=== PATIENT | female | born 1990 | race Caucasian/White ===

== ENCOUNTER 2023-06-13 22:43 | Emergency (ER) | payer MEDICARE, OTHER, SELFPAY ==
[2023-06-13 22:46] VITALS: BP 124/84; BMI 25.6
[2023-06-13 22:49] VITALS: BP 124/85
[2023-06-13 23:00] VITALS: BP 126/91
--- NOTE | 2023-06-13 23:25 | ED.GENMED ---
History of Present Illness
General
Chief Complaint: Throat Problem
Source: patient and records
Exam Limitations: none
Time Seen by Provider: 06/13/23 23:18
Nursing documentation reviewed up to this point in time: agreed with
Travel History
Have you had any contact with someone who has COVID-19?: No
Do you have any symptoms of coronavirus? Fever > 100 degrees, chills, cough, shortness of breath, sore throat, loss of taste or smell, muscle aches, or headache?: No
History of Present Illness
History of Present Illness:
Patient is a 32-year-old female presents to the emergency department stating she is cannot breathe, her throat is closing she is bright red and itchy. Patient has a history reportedly of asthma and mast cell activation syndrome. Patient gave
herself a shot of epinephrine at home. Patient is able to speak in full sentences but does seem to have stridor and states she cannot breathe or swallow. Patient denies fever or chills. Patient denies any GI or symptoms.
Past History
Past History
ED Past Medical History: Psychiatric, Other (Churge Suzanne, mast cell disorder, autoimmune vasculitis) and Other (Churge-Suzanne)
ED Past Surgical History: Other
Social History
Tobacco: Non-smoker
Alcohol: None
Drug: None
Personal: Other (engaged)
Living: with family
Employment: Other
Family History
Family History: Unable to obtain
Review of Systems
Review of Systems
All Other Systems: ROS reviewed and negative except as documented in HPI and ROS
Constitutional: Denies fever or chills
EENT: Reports sore throat and runny nose
Respiratory: Reports cough and trouble breathing
Cardiac: Reports chest pain
ABD/GI: Reports no symptoms
: Reports no symptoms
Musculoskeletal: Reports joint pain
Skin: Reports itching and rash
Neurological: Reports no symptoms
Hematologic/Lymphatic: Reports no symptoms
Phy Exam
Physical Exam
Physical Exam:
Physical Exam
General: significant distress, alert and appropriate, well nourished, well hydrated
HENT: Normocephalic, supple with no lymphadenopathy, no thyromegaly. Oropharynx is clear
Eyes: Clear sclera, conjuctiva without injection
Heart: Regular rhythm and rate. No S3, S4. No murmur. No NVD, bruit
Lungs: No significant respiratory distress, stridor, lung sounds are coarse without wheezing, clear and equal bilaterally, chest wall symmetrical and no retractions
Abdomen: Soft, nontender, no organomegaly, no CVA tenderness, BS good
Neuro: Alert and oriented x 3, CN II - XII intact, no motor focality, no cerebellar dysfunction
Skin: Erythema of the trunk and extremities
Psychiatric: well kept. interactive and anxious
Extremities: No edema, cyanosis, tenderness, Good and equal peripheral pulses.
Course
Orders/Labs/Results
Orders:
Orders
06/13/23 23:23
EPINEPHrine PF [Adrenalin] 1 mg .ROUTE .STK-MED ONE
06/13/23 23:24
EPINEPHrine PF [Adrenalin] 0.3 mg IM NOW STA
06/13/23 23:25
Diphenhydramine [Benadryl] 50 mg IM NOW STA
Famotidine [Pepcid] 40 mg PO NOW STA
Racepinephrine [Vaponefrin Nebs] 0.5 ml INH R NOW STA
06/13/23 23:31
Famotidine [Pepcid] 20 mg .ROUTE .STK-MED ONE
06/13/23 23:36
Famotidine [Pepcid] 20 mg IV NOW STA
06/13/23 23:39
Diphenhydramine [Benadryl] 50 mg IV NOW STA
06/13/23 23:51
Dexamethasone Sod Phosphate [Decadron] 20 mg IV NOW STA
06/14/23 00:16
Lorazepam [Ativan] 2 mg .ROUTE .STK-MED ONE
06/14/23 00:19
Lorazepam [Ativan] 1 mg IV NOW STA
06/14/23 00:23
EPINEPHrine PF [Adrenalin] 0.3 mg IM NOW STA
Vital Signs
Initial and Last Documented VS:
Initial Vital Signs
Temp Pulse Resp BP Pulse Ox
99.1 F 123 18 124/84 97
06/13/23 22:46 06/13/23 22:46 06/13/23 22:46 06/13/23 22:46 06/13/23 22:46
Last Documented Vital Signs
Temp Pulse Resp BP Pulse Ox
99.1 F 117 20 120/82 98
06/13/23 22:46 06/14/23 00:00 06/14/23 00:00 06/14/23 00:00 06/14/23 00:00
*Radiology
Radiology exam reviewed: other (na)
*Pulse Oximetry
Patient hypoxic: no
*EKG
Interpreted by ED Provider?: NA
*Warehouse Picker Interpretation
Rate: tachycardiac
Interpretation: abnormal
Heart Rate: 115
Rhythm: sinus
*Critical Care Note
Total Time (30-74mins, 75-104mins- exclusive of procedures): 45 minutes
Update Note
Update Note:
Patient repeatedly had stridor and difficulty breathing. Was given multiple doses of epinephrine as well as Vaponefrin and, Pepcid, Benadryl and Decadron IV. Patient seen to be anxious and was given Ativan with some improvement. Patient has
difficult IV access. Patient did have a port in the past but had complications. Patient did take epinephrine at home. Patient seemed to be doing better after the Ativan and multiple rounds of epinephrine and other supporting medications. Checked
on the patient and she was having some itching and I asked her to give the medications a chance to work. That was at 12:30 PM patient 5 minutes later wanted to leave after asking to leave prior to that. I explained to the patient that that was not
in her best interest and that if she was sick she needed to stay and she may need to be admitted. I asked the patient to give me another 15 minutes and I would come and check on her however during that time the patient left.
ED Attending Note
-
Portions of this chart may have been created with voice recognition software.� Occasional wrong word or��sound alike� substitutions may have occurred due to the inherent limitations of voice recognition software.
Discharge Plan
Departure
Patient Disposition: Elopement
Date of Disposition: 06/14/23
Time of Disposition: :19
Patient with high blood pressure during this ER visit?: No
Condition: Fair
Covid-19: Not Applicable
Discharge Problem:
Mast cell activation syndrome
Prescriptions:
No Action
alprazolam 1 MG tablet
1 mg PO Q6H
Patient Comments:
06/13/2023: last filled 05/24/23, 120 tabs for 30 days from [facility]
paroxetine HCl 30 MG tablet
60 mg PO HS
topiramate 100 MG tablet
100 mg PO BID
zolpidem 5 mg Tablet
5 mg PO HS
Patient Comments:
06/13/2023: last filled 06/12/23, 30 tabs for 30 days from [facility]
albuterol sulfate 90 mcg/actuation Hfa Aerosol Inhaler
2 puff INHALATION R Q4HPRN PRN (Reason: sob/wheezing)
prazosin 2 mg Capsule
16 mg PO HS
cetirizine [Zyrtec] 10 mg Tablet
10 mg PO BID
fluticasone propion-salmeterol [Advair HFA] 230-21 mcg/actuation Hfa Aerosol Inhaler
2 puff INHALATION R BID
apixaban 5 mg Tablet
5 mg PO BID
Patient Comments:
03/11/2023, patient states that she gets samples of this medication from her Phlebotomy Supervisor.
Qvar RediHaler 80 mcg/actuation Hfa Aerosol Breath Activated
1 inh INHALATION R BID
folic acid 1 mg Tablet
1 mg PO DAILY
midodrine 10 mg tablet
10 mg PO TID PRN (Reason: Blood pressure)
methotrexate (PF) 25 mg/mL Syringe
25 mg SC WE
Patient Comments:
03/11/2023, patient states that she gets this medication from a specialty pharmacy but does not know the name of it.
albuterol sulfate 2.5 mg /3 mL (0.083 %) solution for nebulization
2.5 mg inhalation R Q4
acetaminophen [Tylenol Extra Strength] 500 mg Tablet
1,000 mg PO DAILYPRN PRN (Reason: fever)
trazodone 100 mg Tablet
100 mg PO HS
aripiprazole 15 mg Tablet
15 mg PO HS
azelastine [Astepro Allergy] 205.5 mcg (0.15 %) [place],Non-Aerosol
1 spray INTRANASAL BID
cholecalciferol (vitamin D3) 1,250 mcg (50,000 unit) Tablet
1,250 mcg PO TUTH
Vitamin C
1 tab PO DAILY
cyanocobalamin (vitamin B-12)
1 tab PO DAILY
Referrals:
NONE,* [Family Provider] -
Interventions
Interventions:
*Risk Screen - Suicide Last Done: 06/13/23 22:46
*General Assessment Last Done: 06/13/23 22:46
*Neglect/Abuse Screening Last Done: 06/13/23 22:46
ED- Fall Risk Assessment Last Done: 06/13/23 23:20
ED-EENT Assessment Last Done: 06/13/23 23:20
ED- Pulmonary Assessment Last Done: 06/13/23 23:20
Discharge Date and Time
Print Language: TAJIK
[2023-06-13] MEDS: ADRENALIN 0.299999999999999989 MG IM (23:27)
[2023-06-13] MEDS: VAPONEFRIN NEBS 0.5 ML INH (23:32)
[2023-06-13] MEDS: PEPCID 20 MG IV (23:36)
[2023-06-13] MEDS: BENADRYL 50 MG IV (23:39)
[2023-06-13 23:48] VITALS: BP 121/78
[2023-06-14] VITALS: BP 120/82
[2023-06-14] MEDS: DECADRON 20 MG IV (00:07)
[2023-06-14] MEDS: ADRENALIN 0.299999999999999989 MG IM (00:16)
[2023-06-14] MEDS: ATIVAN 1 MG IV (00:20)
[2023-06-14 00:30] VITALS: BP 105/64
[2023-06-14 01:00] VITALS: BP 120/68
== END 2023-06-14 01:30 | disposition left against medical advice (07) ==
LOC: EMR 22:43
PROVIDERS: EMERGENCY PHYSICIAN Emergency Medicine
DX: D89.40 Mast cell activation, unspecified (principal)
CPT/HCPCS: 99291; 96374; 96375 ×3; 96372 ×2; 94640

== ENCOUNTER 2023-10-17 14:00 | Inpatient (IN) | payer MEDICARE, OTHER, SELFPAY ==
[2023-10-17] VITALS (11 sets, daily range): BP systolic 106–135; BP diastolic 72–91; BMI 26.2
--- NOTE | 2023-10-17 12:22 | ED.GENMED ---
History of Present Illness
<Gely Tsang DO - Last Filed: 10/17/23 12:39>
General
Chief Complaint: Allergic Reaction
Time Seen by Provider: 10/17/23 12:20
<JESSICA De Guzman Jr. Last Filed: 10/17/23 13:26>
General
Source: patient and ambulance crew
Exam Limitations: none
Nursing documentation reviewed up to this point in time: agreed with
History of Present Illness
History of Present Illness:
33-year-old female with past medical history of mast cell activation syndrome, seizure disorder, asthma anxiety anemia presenting to the emergency department today with concerns of an [place] felt
lightheaded like she was going to pass out noticed stridor wheezing and EMS was called. Given a dose of epi Benadryl IM prior to arrival. Had some improvement.
Past History
<Sameer Lugo Jr., PA-C - Last Filed: 10/17/23 13:26>
Past History
ED Past Medical History: Psychiatric, Other (Churge Suzanne, mast cell disorder, autoimmune vasculitis) and Other (Churge-Suzanne)
ED Past Surgical History: Other
Social History
Tobacco: Non-smoker
Alcohol: None
Drug: None
Personal: Other (engaged)
Living: with family
Employment: Other
Family History
Family History: Unable to obtain
Review of Systems
<JESSICA De Guzman Jr. Last Filed: 10/17/23 13:26>
Review of Systems
Allergies reviewed?: Yes
All Other Systems: ROS reviewed and negative except as documented in HPI and ROS
Phy Exam
<JESSICA De Guzman Jr. Last Filed: 10/17/23 13:26>
Physical Exam
Physical Exam:
GENERAL: Alert
EYE: pupils equal and reactive
NECK: Supple, no significant adenopathy.
ENT: Swelling to the posterior pharynx o/p clr, mmm.
CARDIAC: Regular rate and rhythm .
LUNGS: Audible stridor diffuse wheezing
ABDOMEN: Soft, without focal tenderness, no r/g, no cvat
NEUROLOGICAL: Alert and oriented, no focal neuro deficits
SKIN: Warm and dry, skin intact.
MUSCULOSKELETAL: No edema, well perfused.
PSYCH: Normal and appropriate interaction.
Course
<Gely Tsang, DO - Last Filed: 10/17/23 12:39>
Orders/Labs/Results
Orders:
Orders
10/17/23 12:09
Electrocardiogram (*1) Urgent
Reason for Study: Chest Pain
Other Reason for Exam: n
10/17/23 12:10
EKG- Treatment ONCE
EPINEPHrine PF [Adrenalin] 1 mg .ROUTE .STK-MED ONE
10/17/23 12:12
Albuterol Nebs [Ventolin Nebules] 2.5 mg .ROUTE .STK-MED ONE
Racepinephrine [Vaponefrin Nebs] 0.5 ml .ROUTE .STK-MED ONE
10/17/23 12:15
EPINEPHrine PF [Adrenalin] 1 mg .ROUTE .STK-MED ONE
10/17/23 12:23
Dexamethasone Sod Phosphate [Decadron] 10 mg IV NOW STA
10/17/23 12:24
Diphenhydramine [Benadryl] 25 mg IV NOW STA
10/17/23 12:25
Famotidine [Pepcid] 20 mg IV NOW STA
10/17/23 12:28
Famotidine [Pepcid] 20 mg .ROUTE .STK-MED ONE
10/17/23 12:31
Cardiac Monitoring- Treatment ONCE
0.9% Sodium Chloride 1000 ml [Nss] 1,000 ml IV BOLUS
EPINEPHrine PF [Adrenalin] 0.3 mg IM NOW STA
10/17/23 12:52
Complete Blood Count/With Diff Urgent
Comprehensive Metabolic Panel Urgent
10/17/23 13:00
EPINEPHrine 4 mg/250 mL NSS [Adrenalin] 4 mg in 250 ml IV PER PROTOCOL
Initial dose in mcg/min, then titrate:: 5
Titrate to keep:: SBP > 90 mmHg
Titrate by mcg/min:: 0.5-1 mcg/min
Frequency of titrations (minutes):: 5
Maximum dose in mcg/min:: 10
Begin to taper infusion when:: Remained at goal for 4hrs
Taper by mcg/min:: 0.5-1 mcg/min
Frequency of taper (minutes) if patient maintains goal:: 30
Taper to off?: Yes
If infusion off & no longer maintaining goal:: Contact Provider
10/17/23 13:19
Add On- LAB Routine
Tests Added?: mag
Abnormal Lab Results
10/17/23
12:52
RBC 3.52 L 10^6/uL
(4.20-5.40)
Hgb 9.4 L g/dL
(12.0-16.0)
Hct 29.3 L %
(37.0-47.0)
MCH 26.7 L pg
(27.0-31.0)
MCHC 32.1 L g/dL
(33.0-37.0)
RDW 17.5 H %
(11.5-14.5)
MPV 11.7 H fL
(7.4-10.4)
Chloride 108 H mmol/L
(98-107)
BUN 18 H mg/dl
(7-17)
Creatinine 1.1 H mg/dL
(0.6-1.0)
Glucose 104 H mg/dl
(70-99)
10/17/23 12:52
10/17/23 12:52
Vital Signs
Initial and Last Documented VS:
Initial Vital Signs
Temp Pulse Resp BP Pulse Ox
98.4 F 106 24 123/75 88
10/17/23 12:06 10/17/23 12:06 10/17/23 12:06 10/17/23 12:06 10/17/23 12:06
Last Documented Vital Signs
Temp Pulse Resp BP Pulse Ox
98.4 F 111 20 123/75 100
10/17/23 12:06 10/17/23 12:15 10/17/23 12:15 10/17/23 12:06 10/17/23 12:22
<Sameer Lugo Jr., PA-C - Last Filed: 10/17/23 13:26>
Orders/Labs/Results
Orders:
Orders
10/17/23 12:09
Electrocardiogram (*1) Urgent
Reason for Study: Chest Pain
Other Reason for Exam: n
10/17/23 12:10
EKG- Treatment ONCE
EPINEPHrine PF [Adrenalin] 1 mg .ROUTE .STK-MED ONE
10/17/23 12:12
Albuterol Nebs [Ventolin Nebules] 2.5 mg .ROUTE .STK-MED ONE
Racepinephrine [Vaponefrin Nebs] 0.5 ml .ROUTE .STK-MED ONE
10/17/23 12:15
EPINEPHrine PF [Adrenalin] 1 mg .ROUTE .STK-MED ONE
10/17/23 12:23
Dexamethasone Sod Phosphate [Decadron] 10 mg IV NOW STA
10/17/23 12:24
Diphenhydramine [Benadryl] 25 mg IV NOW STA
10/17/23 12:25
Famotidine [Pepcid] 20 mg IV NOW STA
10/17/23 12:28
Famotidine [Pepcid] 20 mg .ROUTE .STK-MED ONE
10/17/23 12:31
Cardiac Monitoring- Treatment ONCE
0.9% Sodium Chloride 1000 ml [Nss] 1,000 ml IV BOLUS
EPINEPHrine PF [Adrenalin] 0.3 mg IM NOW STA
10/17/23 12:52
Complete Blood Count/With Diff Urgent
Comprehensive Metabolic Panel Urgent
10/17/23 13:00
EPINEPHrine 4 mg/250 mL NSS [Adrenalin] 4 mg in 250 ml IV PER PROTOCOL
Initial dose in mcg/min, then titrate:: 5
Titrate to keep:: SBP > 90 mmHg
Titrate by mcg/min:: 0.5-1 mcg/min
Frequency of titrations (minutes):: 5
Maximum dose in mcg/min:: 10
Begin to taper infusion when:: Remained at goal for 4hrs
Taper by mcg/min:: 0.5-1 mcg/min
Frequency of taper (minutes) if patient maintains goal:: 30
Taper to off?: Yes
If infusion off & no longer maintaining goal:: Contact Provider
10/17/23 13:19
Add On- LAB Routine
Tests Added?: mag
Abnormal Lab Results
10/17/23
12:52
RBC 3.52 L 10^6/uL
(4.20-5.40)
Hgb 9.4 L g/dL
(12.0-16.0)
Hct 29.3 L %
(37.0-47.0)
MCH 26.7 L pg
(27.0-31.0)
MCHC 32.1 L g/dL
(33.0-37.0)
RDW 17.5 H %
(11.5-14.5)
MPV 11.7 H fL
(7.4-10.4)
Chloride 108 H mmol/L
(98-107)
BUN 18 H mg/dl
(7-17)
Creatinine 1.1 H mg/dL
(0.6-1.0)
Glucose 104 H mg/dl
(70-99)
10/17/23 12:52
10/17/23 12:52
Vital Signs
Initial and Last Documented VS:
Initial Vital Signs
Temp Pulse Resp BP Pulse Ox
98.4 F 106 24 123/75 88
10/17/23 12:06 10/17/23 12:06 10/17/23 12:06 10/17/23 12:06 10/17/23 12:06
Last Documented Vital Signs
Temp Pulse Resp BP Pulse Ox
98.4 F 111 20 123/75 100
10/17/23 12:06 10/17/23 12:15 10/17/23 12:15 10/17/23 12:06 10/17/23 12:22
<Sameer Lugo Jr., PA-C - Last Filed: 10/17/23 13:26>
MDM/Problems Addressed
MDM/Problems Addressed:
33-year-old female presenting to the emergency department today with concerns of initially syncopal episode then stridor wheezing airway [place]. Patient received epinephrine and Benadryl prior to arrival.
Here with ongoing symptoms does of a history of mast cell activation syndrome. Was given more epinephrine here still having ongoing stridor and wheezing was given racemic epinephrine and dexamethasone as well as Benadryl. There was some apparent
mild improvement. Patient will be admitted to ICU for further monitoring. Patient does not appear to need intubation at this time
<Sameer Lugo Jr., PA-C - Last Filed: 10/17/23 13:26>
*Critical Care Note
Total Time (30-74mins, 75-104mins- exclusive of procedures): Not Applicable
comment:
Critical care statement: A total of 40 minutes of critical care time was provided for this patient. This includes management of unstable vital signs, evaluation of the patient at bedside, reviewing the patient's pertinent medical records, discussion
with consultants, review of old EKGs and review of pertinent medical records. This time with separate from time utilized to perform the aforementioned documented procedures
ED Attending Note
<Gely Tsang DO - Last Filed: 10/17/23 12:39>
ED Attending Note
Patient seen and examined by attending physician: Yes
I performed the substantive portion of visit, reviewed & personally made and approve the management plan that is documented in note by myself or CHARLES.: Yes
I performed a history and physical exam of patient and discussed management with resident, I reviewed resident's note and agree with documented findings and plan of care.: Yes
ED Attending Note:
Patient seen and evaluated at bedside, 33-year-old female with reported history of mast cell syndrome presenting for concern of anaphylaxis. Patient reports difficulty breathing prior to arrival, received epinephrine and route to hospital. Reports
similar symptoms in the past, requiring intubation. She is unclear what her trigger was. Patient has been seen and evaluated in the hospital on multiple occasions for similar symptoms, most recently in June. Vital signs on arrival significant
for tachypnea and tachycardia.
On exam, patient appears anxious. She is speaking in full sentences. Uvula is midline, handling secretions, however does appear to have some stridorous respirations. No wheezing appreciated, upper airway transmitted sounds. No systemic rash.
Concern for allergic reaction. Difficult IV access, ultrasound-guided IV placed by physician offset press assistant. Epinephrine administered as well as steroids, Benadryl. Patient maintained normal saturations, able to speak in full sentences. Holding off
any advanced airway at this time. Will maintain on supplemental O2. However, patient still feels symptomatic, start epinephrine drip and plan for ICU admission
<Sameer Lugo Jr., PA-C - Last Filed: 10/17/23 13:26>
-
Portions of this chart may have been created with voice recognition software.� Occasional wrong word or��sound alike� substitutions may have occurred due to the inherent limitations of voice recognition software.
Discharge Plan
Departure
Patient Disposition: Admit
Date of Disposition: 10/17/23
Time of Disposition: 13:09
Admit to: ICU
Admit to doctor: Daniela
Presentation/result/management discussed w/ accepting MD/DO: Hospitalist
Patient with high blood pressure during this ER visit?: No
Condition: Fair
Covid-19: Not Applicable
Discharge Problem:
Stridor, Wheeze
Prescriptions:
No Action
alprazolam 1 MG tablet
1 mg PO Q6H
Patient Comments:
06/13/2023: last filled 05/24/23, 120 tabs for 30 days from [id number]
paroxetine HCl 30 MG tablet
60 mg PO HS
topiramate 100 MG tablet
100 mg PO BID
zolpidem 5 mg Tablet
5 mg PO HS
Patient Comments:
06/13/2023: last filled 06/12/23, 30 tabs for 30 days from [id number]
albuterol sulfate 90 mcg/actuation Hfa Aerosol Inhaler
2 puff INHALATION R Q4HPRN PRN (Reason: sob/wheezing)
prazosin 2 mg Capsule
16 mg PO HS
cetirizine [Zyrtec] 10 mg Tablet
10 mg PO BID
fluticasone propion-salmeterol [Advair HFA] 230-21 mcg/actuation Hfa Aerosol Inhaler
2 puff INHALATION R BID
apixaban 5 mg Tablet
5 mg PO BID
Patient Comments:
03/11/2023, patient states that she gets samples of this medication from her Manager Agriculture.
Qvar RediHaler 80 mcg/actuation Hfa Aerosol Breath Activated
1 inh INHALATION R BID
folic acid 1 mg Tablet
1 mg PO DAILY
midodrine 10 mg tablet
10 mg PO TID PRN (Reason: Blood pressure)
methotrexate (PF) 25 mg/mL Syringe
25 mg SC WE
Patient Comments:
03/11/2023, patient states that she gets this medication from a specialty pharmacy but does not know the name of it.
albuterol sulfate 2.5 mg /3 mL (0.083 %) solution for nebulization
2.5 mg inhalation R Q4
acetaminophen [Tylenol Extra Strength] 500 mg Tablet
1,000 mg PO DAILYPRN PRN (Reason: fever)
trazodone 100 mg Tablet
100 mg PO HS
aripiprazole 15 mg Tablet
15 mg PO HS
azelastine [Astepro Allergy] 205.5 mcg (0.15 %) [place],Non-Aerosol
1 spray INTRANASAL BID
cholecalciferol (vitamin D3) 1,250 mcg (50,000 unit) Tablet
1,250 mcg PO TUTH
Vitamin C
1 tab PO DAILY
cyanocobalamin (vitamin B-12)
1 tab PO DAILY
Interventions
Interventions:
*Risk Screen - Suicide Last Done: 10/17/23 12:23
*General Assessment Last Done: 10/17/23 12:06
*Neglect/Abuse Screening Last Done: 10/17/23 12:06
ED- Fall Risk Assessment Last Done: 10/17/23 12:22
ED- Cardiac Assessment Last Done: 10/17/23 12:22
ED- Pulmonary Assessment Last Done: 10/17/23 12:22
ED-Skin Assessment Last Done: 10/17/23 12:22
Discharge Date and Time
Print Language: BOLIVIAN
[2023-10-17] MEDS: BENADRYL 25 MG IV (12:30)
[2023-10-17] MEDS: PEPCID 20 MG IV (12:32)
[2023-10-17] MEDS: DECADRON 10 MG IV (12:33)
[2023-10-17] MEDS: ADRENALIN 0.3 MG IM (12:36)
[2023-10-17] MEDS: NSS 1000 IV (12:37)
[2023-10-17 13:00] LABS: % Basophils 0.6 % (0-2); % Eosinophils 1.7 % (0-6); % Immature Granulocytes 0.5 % (0-0.5); % Lymphocytes 42.4 % (20.5-51.1); % Monocytes 9.1 % (1.7-9.3); % Neutrophils 45.7 % (42.2-75.2); Absolute Eosinophils 0.1 10^3/uL (0-0.7); Absolute Lymphocytes 2.7 10^3/uL (1.2-3.4); Absolute Monocytes 0.6 10^3/uL (0.1-0.6); Absolute Neutrophils 2.9 10^3/uL (1.4-6.5); Hematocrit 29.3 % (37.0-47.0); Hemoglobin 9.4 g/dL (12.0-16.0); Mean Corp Hgb Conc. 32.1 g/dL (33.0-37.0); Mean Corpuscular Hgb 26.7 pg (27.0-31.0); Mean Corpuscular Volume 83.2 fL (81.0-99.0); Mean Platelet Volume 11.7 fL (7.4-10.4); Nucleated Red Blood Cells % 0 %; Platelet Count 225 10^3/uL (130-400); Red Blood Cell Count 3.52 10^6/uL (4.20-5.40); Red Cell Dist. Width 17.5 % (11.5-14.5); White Blood Cell Count 6.3 10^3/uL (4.8-10.8)
[2023-10-17 13:13] LABS: ALT (SGPT) 28 U/L (0-35); AST (SGOT) 36 U/L (14-36); Albumin 4.3 g/dl (3.5-5.0); Alkaline Phosphatase 67 U/L (38-126); Blood Urea Nitrogen 18 mg/dl (7-17); Calcium 9.1 mg/dl (8.4-10.2); Carbon Dioxide 22 mmol/L (22-30); Chloride 108 mmol/L (98-107); Glucose 104 mg/dl (70-99); Potassium 3.6 mmol/L (3.5-5.1); Sodium 140 mmol/L (135-145); Total Bilirubin 0.3 mg/dl (0.2-1.3); Total Protein 6.7 g/dl (6.3-8.2); eGFR > 60.00
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
[2023-10-17] MEDS: ADRENALIN 250 IV (13:23)
[2023-10-17 13:48] LABS: Magnesium 1.7 mg/dl (1.6-2.3)
[2023-10-17] MEDS: ATIVAN 2 MG IV (14:33)
[2023-10-17] MEDS: D5/0.45%NSS with KCL 10 MEQ 1000 IV (15:14)
--- NOTE | 2023-10-17 15:30 | PTCARENOTE ---
Received pt from ER into ICU rm [id number] @ approx 1500. Pt. AAOx3, anxious. Hoarse voice quality. Hand tremors present. SpO2 98% on RA. 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 No desaturation/tachypnea noted. Dr. dangelo to
bedside, aware of forced breathing pattern @ x's. SR on monitor. Epi gtt infusing via #20 R upper arm to keep SBP >90- see flow sheet. +BS and soft/nt. NPO status maintained; tolerating ice chips per diet orders. Stress inc @ x's. Bedrest
maintained on epi gtt. Instructed on how to report care concerns and call chris victor in reach.
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
[2023-10-17 15:42] LABS: APTT 24.3 Sec (23.4-35.0); INR 1.15; PT 14.6 Sec (11.4-14.6)
[2023-10-17] MEDS: BENADRYL 50 MG IV (16:25)
--- NOTE | 2023-10-17 18:34 | PTCARENOTE ---
Epi gtt tapered to off per orders- see flow sheet. Pt. assisted OOB to chair, tolerating chair position. Call perez remains w in reach.
--- NOTE | 2023-10-17 19:16 | PTCARENOTE ---
Patient wishes to leave AMA. 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 Patient educated about continuing treatment, educated about worsening signs of clinical deterioration, questions answered. AMA papers signed, patient was escorted off the unit by
security.
--- NOTE | 2023-10-17 19:37 | W.PN.UPDATE ---
Update Note
Progress Note Update
Patient stated she would like to leave AMA (against medical advice). Risks addressed and all questions answered, she signed AMA paperwork concern for worsening clinical deterioration if she does not stay and verbalized understanding. Patient will
call to arrange a ride home. RN, charge nurse, nursing power and recovery supervisor, and Dr. Barth graduate research assistant made aware.
--- NOTE | 2023-10-20 15:50 | W.DCSUMMARY ---
Discharge Summary
Discharge Data
Date of Admission: 10/17/23
Date of Discharge: 10/17/23
-
Pending Results: No
Hospital Course
Primary diagnoses:
Acute anaphylaxis
Mast cell activation syndrome
Secondary diagnoses:
h/o right atrial thrombus
Churg-Suzanne syndrome
Asthma
Posttraumatic stress disorder
Anxiety
Insomnia
Chronic hypertension
Common Variable Immunodeficiency
Migraine Headaches
Seizure previously requiring intubation
Left Atrial Mass, undergoing workup at [facility]
Mononeuritis Multiplex
Consults:
Critical care
Imaging:
CXR: Low lung volumes. No suspected acute cardiopulmonary process.
Hospital course: 33-year-old female who presented with anaphylaxis as outlined in the H&P done on admission. The patient was placed on an epinephrine drip in the ER. She was admitted to the ICU. Shortly thereafter the patient left AGAINST MEDICAL
ADVICE.
Discharge Plan
-
Patient Disposition: Against Medical Advice
Condition: Fair
Prescriptions:
No Action
alprazolam 1 MG tablet
1 mg PO Q6H
Patient Comments:
10/17/23: Per PDMP, last filled 10/06/23 #120 for 30 days
paroxetine HCl 30 MG tablet
60 mg PO HS
topiramate 100 MG tablet
100 mg PO BID
zolpidem 5 mg Tablet
5 mg PO HSPRN PRN (Reason: sleep)
Patient Comments:
10/17/23: Last filled 10/03/23 #30 for 30 days
albuterol sulfate 90 mcg/actuation Hfa Aerosol Inhaler
2 puff INHALATION R Q4HPRN PRN (Reason: sob/wheezing)
prazosin 2 mg Capsule
12 mg PO HS
cetirizine [Zyrtec] 10 mg Tablet
10 mg PO BID
fluticasone propion-salmeterol [Advair HFA] 230-21 mcg/actuation Hfa Aerosol Inhaler
2 puff INHALATION R BID
apixaban 5 mg Tablet
5 mg PO BID
Patient Comments:
03/11/2023, patient states that she gets samples of this medication from her Donation Worker.
folic acid 1 mg Tablet
1 mg PO DAILY
midodrine 10 mg tablet
10 mg PO TIDPRN PRN (Reason: Blood pressure)
albuterol sulfate 2.5 mg /3 mL (0.083 %) solution for nebulization
2.5 mg inhalation R Q4HPRN PRN (Reason: sob)
trazodone 100 mg Tablet
100 mg PO HS
fexofenadine [Qing] 60 mg Tablet
60 mg PO BID
sumatriptan succinate [Imitrex] 100 mg Tablet
0 mg PO .COMPLEX
Rx Instructions:
take 1 tab at onset of headache; if no relief, may repeat 1 tab after at least 2 hrs; max = 2 tabs/24 hrs
cyanocobalamin (vitamin B-12) 1,000 mcg Tablet
1,000 mcg PO DAILY
oxycodone-acetaminophen [Percocet] 5-325 mg Tablet
2 tab PO Q8HPRN PRN (Reason: severe pain)
famotidine [Pepcid] 20 mg Tablet
20 mg PO BID
Gammagard 2.5 gram Recon Soln
0 g IV TU
fluticasone propionate [Flonase] 50 mcg/actuation [place],Suspension
1 spray INTRANASAL BID
naratriptan 2.5 mg Tablet
0 mg PO .COMPLEX
Rx Instructions:
take 1 tab at onset of headache; if no relief may repeat 1 tab after at least 4 hrs; max = 2 tabs/24 hrs
atovaquone [Mepron] 750 mg/5 mL Suspension
1,500 mg PO BID
Patient Comments:
10/17/23 patient suppose to be on this but does not take this because of the taste
pregabalin [Lyrica] 300 mg Capsule
300 mg PO BID
Nucala 100 mg Recon Soln
300 mg SC Q4W
Medrol 2 mg Tablet
16 mg PO BID
Uribel
1 tab PO TID
Discharge Date and Time
Discharge Date/Time: 10/17/23 19:20
Print Language: IRAQI
== END 2023-10-17 19:20 | disposition left against medical advice (07) | DRG 202 ==
LOC: ICU 14:00
PROVIDERS: Physician Assistant; ADMITTING PHYSICIAN Internal Medicine; CONSULT PHYSICIAN Internal Medicine Critical Care Medicine; EMERGENCY PHYSICIAN Student in an Organized Health Care Education/Training Program
DX: J98.01 Acute bronchospasm (principal); D83.9 Common variable immunodeficiency, unspecified; M30.1 Polyarteritis with lung involvement [Churg-Strauss]; N17.9 Acute kidney failure, unspecified; Z53.29 Procedure and treatment not carried out because of patient's decision for other reasons; R06.03 Acute respiratory distress; D89.40 Mast cell activation, unspecified; D84.1 Defects in the complement system; I95.89 Other hypotension; I51.3 Intracardiac thrombosis, not elsewhere classified; G58.7 Mononeuritis multiplex; G40.909 Epilepsy, unspecified, not intractable, without status epilepticus; D64.9 Anemia, unspecified; F43.10 Post-traumatic stress disorder, unspecified; F41.9 Anxiety disorder, unspecified; G43.909 Migraine, unspecified, not intractable, without status migrainosus; G47.00 Insomnia, unspecified; J32.9 Chronic sinusitis, unspecified; Z79.51 Long term (current) use of inhaled steroids; Z79.01 Long term (current) use of anticoagulants; Z88.6 Allergy status to analgesic agent; Z88.1 Allergy status to other antibiotic agents; Z88.2 Allergy status to sulfonamides; Z88.8 Allergy status to other drugs, medicaments and biological substances; Z91.013 Allergy to seafood; Z79.899 Other long term (current) drug therapy; Z60.8 Other problems related to social environment
CPT/HCPCS: 71045; 80053; 83735; 85025; 85610; 85730; 93005; 96361; 96372; 96374; 96375; 99291; J3480

== ENCOUNTER 2023-10-18 13:05 | Emergency (ER) | payer MEDICARE, OTHER, SELFPAY ==
[2023-10-18 13:07] VITALS: BP 119/73; BMI 26.9
[2023-10-18 13:11] VITALS: BP 119/73
--- NOTE | 2023-10-18 13:22 | PHANOTE ---
med rec note- Patent returning back to [facility], patient does have a list of meds on her phone which looks like [facility]. patient shake and unsteady with her phone can make out the portal 100%. Patient stated that some of the medication are
not important and that we probably do not caring them here, I did explain my job to her weather we do or do not caring them, did convenience her to finish the list on the portal. Added them to the list. patient request that we give her IV Benadryl
q4h. I did inform her that is up to her md taking care of her and I can pass the message along.
[2023-10-18] MEDS: ATIVAN 2 MG IV (13:28)
[2023-10-18] MEDS: DECADRON 10 MG IV (13:29)
[2023-10-18] MEDS: BENADRYL 50 MG IV (13:29)
--- NOTE | 2023-10-18 13:32 | ED.GENMED ---
History of Present Illness
General
Chief Complaint: Allergic Reaction
Time Seen by Provider: 10/18/23 13:13
History of Present Illness
History of Present Illness:
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 Prior to arrival she was at a court house and someone
opened crackers with peanut butter. She subsequently started to have difficulty breathing, prompting her to call medics. Medics administered 3 rounds of epinephrine en route. Patient reports minimal improvement. However, of note, patient has
been seen and evaluated for this issue on several occasions. Most recently yesterday, patient presented for concern of anaphylaxis, was placed on epinephrine drip and admitted to the ICU. Patient left AMA yesterday. Patient feels that her throat
is swollen. She also reports some tightness with her breathing. She reports history of intubations in the past. Denies any additional medical complaints
Past History
Past History
ED Past Medical History: Psychiatric, Other (Churge Suzanne, mast cell disorder, autoimmune vasculitis) and Other (Churge-Suzanne)
ED Past Surgical History: Other
Social History
Tobacco: Non-smoker
Alcohol: None
Drug: None
Personal: Other (engaged)
Living: with family
Employment: Other
Family History
Family History: Unable to obtain
Phy Exam
Physical Exam
Physical Exam:
General:no clinical signs of dehydration, nontoxic and in no acute distress
HEENT: protecting airway, speaking in full sentences. Forced stridor when coughing. No stridor at rest. No oropharyngeal swelling. Handling secretions
Neck: appears supple
CV: Tachycardic, regular rhythm, no evidence of cyanosis
Resp: No accessory muscle use, no increased work of breathing, lungs clear to auscultation bilaterally
Abd: Soft and non-distended, no tenderness to palpation, normal bowel sounds
Extremities: No deformities, no swelling, no erythema, pulses and sensation intact
Neuro: alert, no focal neurologic deficit
: deferred
Rectal: deferred
Psych: Normal affect
Skin: Intact
Course
Orders/Labs/Results
Orders:
Orders
10/18/23 13:21
Dexamethasone Sod Phosphate [Decadron] 10 mg IV NOW STA
Diphenhydramine [Benadryl] 50 mg IV NOW STA
Lorazepam [Ativan] 2 mg IV NOW STA
10/18/23 13:28
CBC/With Diff [Complete Blood Count/With Diff] Urgent
Comprehensive Metabolic Panel Urgent
10/18/23 14:23
Albuterol Nebs [Ventolin Nebules] 2.5 mg INH R NOW STA
Abnormal Lab Results
10/18/23
13:28
RBC 3.22 L 10^6/uL
(4.20-5.40)
Hgb 8.9 L g/dL
(12.0-16.0)
Hct 26.8 L %
(37.0-47.0)
RDW 17.5 H %
(11.5-14.5)
MPV 11.5 H fL
(7.4-10.4)
Absolute Monos (auto) 0.7 H 10^3/uL
(0.1-0.6)
Potassium 2.8 L mmol/L
(3.5-5.1)
Chloride 108 H mmol/L
(98-107)
Carbon Dioxide 21 L mmol/L
(22-30)
Glucose 156 H mg/dl
(70-99)
10/18/23 13:28
10/18/23 13:28
Vital Signs
Initial and Last Documented VS:
Initial Vital Signs
Temp Pulse BP Pulse Ox
98.2 F 124 119/73 100
10/18/23 13:07 10/18/23 13:07 10/18/23 13:07 10/18/23 13:07
Last Documented Vital Signs
Temp Pulse Resp BP Pulse Ox
98.2 F 82 16 107/96 99
10/18/23 13:07 10/18/23 14:45 10/18/23 14:45 10/18/23 14:24 10/18/23 14:45
MDM/Problems Addressed
MDM/Problems Addressed:
33-year-old female with history of mast cell activation syndrome presenting for concern of anaphylaxis after exposure to peanut butter. Vital signs on arrival significant for tachycardia.
On exam, patient is in no acute respiratory distress, received 3 doses of IM epinephrine en route. Patient is reporting that she is not feeling better, however on my assessment she is speaking in full sentences. She has no stridor at rest. She
does have some for stridor with coughing. There is no wheezing on auscultation to the lungs. There is no systemic rash. There is no oropharyngeal swelling. Patient is handling secretions without difficulty. Do not feel that she requires any
intubation at this time or epinephrine drip. Feel that medications have appropriately worked. She is requesting steroids, Benadryl, Ativan. Will administer. However, given patient's long history of allergic reactions, risk of decompensation and
rebound reaction. Plan for admission for continued monitoring.
15:00-patient now claiming she wants to leave AGAINST MEDICAL ADVICE. Risks of leaving explained, including respiratory arrest and . Patient verbalized understanding. Patient ripped out her IV and left without paperwork
*Critical Care Note
Total Time (30-74mins, 75-104mins- exclusive of procedures): Not Applicable
ED Attending Note
-
Portions of this chart may have been created with voice recognition software.� Occasional wrong word or��sound alike� substitutions may have occurred due to the inherent limitations of voice recognition software.
Discharge Plan
Departure
Patient Disposition: Admit
Date of Disposition: 10/18/23
Time of Disposition: 14:05
Presentation/result/management discussed w/ accepting MD/DO: Hospitalist
Patient with high blood pressure during this ER visit?: No
Condition: Fair
Discharge Problem:
Mast cell activation syndrome, Acute anaphylaxis
Prescriptions:
No Action
alprazolam 1 MG tablet
1 mg PO Q6H
Patient Comments:
10/17/23: Per PDMP, last filled 10/06/23 #120 for 30 days
paroxetine HCl 30 MG tablet
60 mg PO HS
topiramate 100 MG tablet
100 mg PO BID
zolpidem 5 mg Tablet
5 mg PO HSPRN PRN (Reason: sleep)
Patient Comments:
10/17/23: Last filled 10/03/23 #30 for 30 days
albuterol sulfate 90 mcg/actuation Hfa Aerosol Inhaler
2 puff INHALATION R Q4HPRN PRN (Reason: sob/wheezing)
prazosin 2 mg Capsule
12 mg PO HS
cetirizine [Zyrtec] 10 mg Tablet
10 mg PO BID
fluticasone propion-salmeterol [Advair HFA] 230-21 mcg/actuation Hfa Aerosol Inhaler
2 puff INHALATION R BID
apixaban 5 mg Tablet
5 mg PO BID
Patient Comments:
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
folic acid 1 mg Tablet
1 mg PO DAILY
midodrine 10 mg tablet
10 mg PO TIDPRN PRN (Reason: Blood pressure)
albuterol sulfate 2.5 mg /3 mL (0.083 %) solution for nebulization
2.5 mg inhalation R Q4HPRN PRN (Reason: sob)
trazodone 100 mg Tablet
100 mg PO HS
fexofenadine [Qing] 60 mg Tablet
60 mg PO BID
sumatriptan succinate [Imitrex] 100 mg Tablet
0 mg PO .COMPLEX
Rx Instructions:
take 1 tab at onset of headache; if no relief, may repeat 1 tab after at least 2 hrs; max = 2 tabs/24 hrs
cyanocobalamin (vitamin B-12) 1,000 mcg Tablet
1,000 mcg PO DAILY
oxycodone-acetaminophen [Percocet] 5-325 mg Tablet
2 tab PO Q8HPRN PRN (Reason: severe pain)
famotidine [Pepcid] 20 mg Tablet
20 mg PO BID
Gammagard 2.5 gram Recon Soln
0 g IV TU
fluticasone propionate [Flonase] 50 mcg/actuation [place],Suspension
1 spray INTRANASAL BID
naratriptan 2.5 mg Tablet
0 mg PO .COMPLEX
Rx Instructions:
take 1 tab at onset of headache; if no relief may repeat 1 tab after at least 4 hrs; max = 2 tabs/24 hrs
atovaquone [Mepron] 750 mg/5 mL Suspension
1,500 mg PO BID
Patient Comments:
10/17/23 patient suppose to be on this but does not take this because of the taste
pregabalin [Lyrica] 300 mg Capsule
300 mg PO BID
Nucala 100 mg Recon Soln
300 mg SC Q4W
Medrol 2 mg Tablet
16 mg PO BID
Uribel
1 tab PO TID
Interventions
Interventions:
*Risk Screen - Suicide Last Done: 10/18/23 13:07
*General Assessment Last Done: 10/18/23 13:07
*Neglect/Abuse Screening Last Done: 10/18/23 13:07
ED- Fall Risk Assessment Last Done: 10/18/23 13:15
*ED COVID-19 Vaccine History Last Done: 10/18/23 13:07
ED- Cardiac Assessment Last Done: 10/18/23 13:15
ED- Pulmonary Assessment Last Done: 10/18/23 13:15
ED-Skin Assessment Last Done: 10/18/23 13:15
Discharge Date and Time
Print Language: INDONESIAN
[2023-10-18 13:44] LABS: % Basophils 0.3 % (0-2); % Eosinophils 1.9 % (0-6); % Immature Granulocytes 0.4 % (0-0.5); % Lymphocytes 40.6 % (20.5-51.1); % Monocytes 8.9 % (1.7-9.3); % Neutrophils 47.9 % (42.2-75.2); Absolute Eosinophils 0.1 10^3/uL (0-0.7); Absolute Lymphocytes 3.1 10^3/uL (1.2-3.4); Absolute Monocytes 0.7 10^3/uL (0.1-0.6); Absolute Neutrophils 3.6 10^3/uL (1.4-6.5); Hematocrit 26.8 % (37.0-47.0); Hemoglobin 8.9 g/dL (12.0-16.0); Mean Corp Hgb Conc. 33.2 g/dL (33.0-37.0); Mean Corpuscular Hgb 27.6 pg (27.0-31.0); Mean Corpuscular Volume 83.2 fL (81.0-99.0); Mean Platelet Volume 11.5 fL (7.4-10.4); Nucleated Red Blood Cells % 0 %; Platelet Count 215 10^3/uL (130-400); Red Blood Cell Count 3.22 10^6/uL (4.20-5.40); Red Cell Dist. Width 17.5 % (11.5-14.5); White Blood Cell Count 7.5 10^3/uL (4.8-10.8)
[2023-10-18 13:57] LABS: ALT (SGPT) 27 U/L (0-35); AST (SGOT) 32 U/L (14-36); Albumin 4.2 g/dl (3.5-5.0); Alkaline Phosphatase 60 U/L (38-126); Blood Urea Nitrogen 15 mg/dl (7-17); Calcium 9.5 mg/dl (8.4-10.2); Carbon Dioxide 21 mmol/L (22-30); Chloride 108 mmol/L (98-107); Estimated Creatinine Clearance 79 ml/min; Glucose 156 mg/dl (70-99); Potassium 2.8 mmol/L (3.5-5.1); Sodium 140 mmol/L (135-145); Total Bilirubin 0.3 mg/dl (0.2-1.3); Total Protein 6.3 g/dl (6.3-8.2); eGFR > 60.00
[2023-10-18 14:24] VITALS: BP 107/96
--- NOTE | 2023-10-18 15:11 | EDRN ---
pt admitted to the hospital for overnight observation by ED attending Dr. Tsang. admitting hospitalist Dr. Michael Reed who was refusing to admit the patient. Dr. Reed stated to myself and Dr. Tsang that 'the patient is fine, she has no
stridor, no wheezing, no shortness of breath and she does not need to be admitted to the hospital.' Dr. Tsang informed Dr. Reed that the patient received 3 rounds of epinephrine prior to coming to the hospital and can rebound with anaphylaxis.
Dr. Reed proceeded to tell Dr. Tsang that the patient does not need to be admitted and that Dr. Tsang is 'pushing the discharge on another physician upstairs.' Dr. Reed went back into the patient's room and told her several times that it
is her decision to stay in the hospital or go home. Dr. Tsang said that she will discharge the patient AMA if it is under her own accord, however Dr. Tsang did not feel comfortable discharging the patient. Dr. Reed did not agree with this,
going back into the patient's room several times telling her it is her decision to stay or go, ultimately leading the patient to rip out her own IV, take herself off the cardiac tech, dress herself, and walk out of the emergency department.
Patient left in no acute distress, ambulating with a steady gait, speaking in complete sentences. co op Caitlin made aware of situation.
== END 2023-10-18 15:03 | disposition left against medical advice (07) ==
LOC: EMR 13:05
PROVIDERS: EMERGENCY PHYSICIAN Student in an Organized Health Care Education/Training Program
DX: D89.40 Mast cell activation, unspecified (principal); T78.2XXA Anaphylactic shock, unspecified, initial encounter
CPT/HCPCS: 99283; 96374; 96375; 80053; 85025